=== PATIENT | male | born 1990 | race Two or more races ===

== ENCOUNTER 2023-05-05 16:04 | Emergency (ER) | payer SELFPAY ==
[~2023-05-05] VITALS: Ht 180.3 cm; Wt 125.8 kg
[2023-05-05] MEDS ORDERED: TETANUS-DIPTH-ACEL PERTUSSIS 0.5ML SYR Tdap IM ONE (20:15)
[2023-05-05] MEDS ORDERED: IBUPROFEN 600 MG TAB PO ONE (20:15)
[2023-05-05] MEDS ORDERED: NEOMYCIN-BACITRACIN-POLYM UNITDOSE PKG TOP OINT TOP ONE (20:15)
[2023-05-05] MEDS ORDERED: CEPH500T PO (21:13)
[2023-05-05] MEDS ORDERED: IBUP1TAB5 PO (21:14)
[2023-05-05 21:36] VITALS: BP 132/78; PULSE 89; RESP 16; TEMP 98; O2SAT 98
== END 2023-05-05 22:43 | disposition home or self-care (01) ==
LOC: ER 16:04
DX: S61.512A Laceration without foreign body of left wrist, initial encounter (principal); X58.XXXA Exposure to other specified factors, initial encounter; Y93.89 Activity, other specified; Y92.89 Other specified places as the place of occurrence of the external cause; Y99.8 Other external cause status
CPT/HCPCS: 73110; 90471; 90715